=== PATIENT | female | born 1960 | race Caucasian/White ===

== ENCOUNTER 2017-01-23 20:48 | Emergency (ER) | payer SELFPAY ==
[~2017-01-23 20:48] MED LIST: METOPROLOL TART25 M1 PO; NEU300 PO; NOR10T PO; PROZ20 PO; SOMA350 MG PO; XAN1 PO
[2017-01-23 23:45] VITALS: BP 139/86
== END 2017-01-23 23:45 | disposition home or self-care (01) ==
LOC: ED 20:48
DX: G89.29 Other chronic pain (principal); R06.00 Dyspnea, unspecified; J45.909 Unspecified asthma, uncomplicated; Z79.899 Other long term (current) drug therapy

== ENCOUNTER 2017-07-31 19:32 | Emergency (ER) | payer OTHER ==
[2017-07-31 22:16] LABS: BASOPHIL % 0.7 % (0-2); PLATELET COUNT 225 x10^3mcL (130-400); RED CELL DISTRIBUTION WIDTH 13.6 % (11.5-14.5)
[2017-07-31 22:25] LABS: CALCIUM 8.8 mg/dL (8.5-10.1); CHLORIDE SERUM 105 mmol/L (98-107); GFR1 > 60 mL/min; GLUCOSE SERUM 126 mg/dL (74-106); POTASSIUM SERUM 3.7 mmol/L (3.5-5.1); SODIUM SERUM 142 mmol/L (136-145)
[2017-07-31 22:29] LABS: microscopic required? YES; urine erythrocyte NEGATIVE (NEGATIVE)
[2017-07-31 22:30] LABS: ALBUMIN 4.1 g/dL (3.4-5.0); ALKALINE PHOSPHATASE 88 U/L (46-116); ALT/SGPT 24 U/L (14-59); AST/SGOT 9 U/L (15-37); BILIRUBIN TOTAL 0.35 mg/dL (0.20-1.00); TOTAL PROTEIN, SERUM 7.7 g/dL (6.4-8.2)
[2017-08-01 00:34] VITALS: BP 140/85
== END 2017-08-01 00:34 | disposition home or self-care (01) ==
LOC: ED 19:32
PROVIDERS: Emergency Medicine
DX: F11.23 Opioid dependence with withdrawal (principal); F41.1 Generalized anxiety disorder; M79.1 Myalgia; J45.909 Unspecified asthma, uncomplicated
CPT/HCPCS: 36415

== ENCOUNTER 2017-08-21 19:48 | Emergency (ER) | payer OTHER ==
[2017-08-21 20:42] VITALS: BP 146/91
== END 2017-08-21 20:42 | disposition home or self-care (01) ==
LOC: ED 19:48
DX: Z76.0 Encounter for issue of repeat prescription (principal); G89.29 Other chronic pain; M54.5 Low back pain; J45.909 Unspecified asthma, uncomplicated; M54.2 Cervicalgia; M48.00 Spinal stenosis, site unspecified

== ENCOUNTER 2017-09-14 18:36 | Emergency (ER) | payer OTHER ==
[~2017-09-14] VITALS: Ht 167.6 cm; Wt 103.9 kg
[2017-09-14 18:58] VITALS: Ht 167.6 cm; Wt 103.9 kg
[2017-09-14 19:53] VITALS: BP 134/97
== END 2017-09-14 19:53 | disposition home or self-care (01) ==
LOC: ED 18:36
DX: Z76.0 Encounter for issue of repeat prescription (principal); F41.9 Anxiety disorder, unspecified; G89.4 Chronic pain syndrome; F32.9 Major depressive disorder, single episode, unspecified; K02.9 Dental caries, unspecified; E66.9 Obesity, unspecified; F11.20 Opioid dependence, uncomplicated

== ENCOUNTER 2017-11-07 16:53 | Emergency (ER) | payer OTHER ==
[~2017-11-07] VITALS: Ht 167.6 cm; Wt 102.0 kg
[2017-11-07 16:56] VITALS: BP 140/95; Ht 167.6 cm; Wt 102.0 kg
== END 2017-11-07 17:28 | disposition home or self-care (01) ==
LOC: ED 16:53
DX: G89.29 Other chronic pain (principal); M54.5 Low back pain; J45.909 Unspecified asthma, uncomplicated

== ENCOUNTER 2017-11-08 20:40 | Emergency (ER) | payer OTHER ==
[~2017-11-08] VITALS: Ht 167.6 cm; Wt 103.0 kg
[2017-11-08 20:49] VITALS: Ht 167.6 cm; Wt 103.0 kg
[2017-11-08 22:31] LABS: BASOPHIL % 0.9 % (0-2); PLATELET COUNT 218 x10^3mcL (130-400); RED CELL DISTRIBUTION WIDTH 13.9 % (11.5-14.5)
[2017-11-08 22:38] LABS: CALCIUM 8.2 mg/dL (8.5-10.1); CARBON DIOXIDE 27.7 mmol/L (21-32); CREATININE SERUM 1.1 mg/dL (0.6-1.0); POTASSIUM SERUM 3.4 mmol/L (3.5-5.1)
[2017-11-08 22:41] LABS: ALBUMIN 3.4 g/dL (3.4-5.0); BILIRUBIN TOTAL 0.2 mg/dL (0.20-1.00); TOTAL PROTEIN, SERUM 6.6 g/dL (6.4-8.2)
[2017-11-09 02:30] VITALS: BP 110/69
== END 2017-11-09 03:21 | disposition home or self-care (01) ==
LOC: ED 20:40
PROVIDERS: Emergency Medicine
DX: R07.9 Chest pain, unspecified (principal); R06.02 Shortness of breath; J45.909 Unspecified asthma, uncomplicated; G89.29 Other chronic pain
CPT/HCPCS: 36415; 83880; Q0092

== ENCOUNTER 2017-12-03 18:04 | Inpatient (IN) | payer OTHER ==
[~2017-12-03] VITALS: Ht 167.6 cm; Wt 98.9 kg
[2017-12-03 18:05] VITALS: Ht 167.6 cm; Wt 98.9 kg
[2017-12-03 19:02] LABS: BASOPHIL % 0.5 % (0-2); PLATELET COUNT 302 x10^3mcL (130-400)
[2017-12-03 19:09] LABS: CALCIUM 8.8 mg/dL (8.5-10.1); CARBON DIOXIDE 25.2 mmol/L (21-32); CREATININE SERUM 1.7 mg/dL (0.6-1.0); POTASSIUM SERUM 3.9 mmol/L (3.5-5.1)
[2017-12-03 19:21] LABS: ALBUMIN 3.6 g/dL (3.4-5.0); BILIRUBIN TOTAL 0.3 mg/dL (0.20-1.00); T4(THYROXINE) 5.8 ug/dL (4.7-13.3); TOTAL PROTEIN, SERUM 6.9 g/dL (6.4-8.2)
[2017-12-03 19:26] LABS: CK-MB 0.9 ng/mL (0-3.6)
[2017-12-03 19:29] LABS: RED CELL DISTRIBUTION WIDTH 14.6 % (11.5-14.5)
[2017-12-03 19:31] LABS: AMPHETAMINE QUAL UR NONE DETECTED (NEG <=1000)
[2017-12-03] MEDS ORDERED: ROBAXIN-750750 MG PO (19:40)
[2017-12-03] MEDS ORDERED: PERCOCET1 TA5 PO (19:40)
[2017-12-03] MEDS ORDERED: MORPHINE SULFAT30 M2 PO (19:41)
[2017-12-03] MEDS ORDERED: LIDODERM51 TOP (20:05)
[2017-12-03 20:26] VITALS: BP 109/65
[2017-12-03 21:27] LABS: MAGNESIUM 2.2 mg/dL (1.8-2.4); PHOSPHOROUS 4.8 mg/dL (2.5-4.9)
[2017-12-03 21:29] LABS: CHOLESTEROL/HDL RATIO 3.5
[2017-12-04 04:42] LABS: BASOPHIL % 0.5 % (0-2); PLATELET COUNT 249 x10^3mcL (130-400)
[2017-12-04 04:43] LABS: RED CELL DISTRIBUTION WIDTH 14.9 % (11.5-14.5)
[2017-12-04 04:50] VITALS: BP 95/59
[2017-12-04 04:57] LABS: CALCIUM 8.7 mg/dL (8.5-10.1); CARBON DIOXIDE 28.2 mmol/L (21-32); CREATININE SERUM 1.4 mg/dL (0.6-1.0); MAGNESIUM 2.3 mg/dL (1.8-2.4); PHOSPHOROUS 4.6 mg/dL (2.5-4.9); POTASSIUM SERUM 3.8 mmol/L (3.5-5.1)
[2017-12-04 09:00] VITALS: BP 130/77
[2017-12-04 09:16] VITALS: BP 130/77
[2017-12-04 12:13] VITALS: BP 110/65
[2017-12-04 16:58] VITALS: BP 102/62
[2017-12-04 21:01] VITALS: BP 102/65
[2017-12-05] MEDS ORDERED: LIPI10 PO (05:49)
[2017-12-05 05:51] VITALS: BP 136/72
[2017-12-05] MEDS ORDERED: METOPROLOL TART25 M1 PO (05:59)
[2017-12-05] MEDS ORDERED: ECO81 PO (06:01)
[2017-12-05 06:22] LABS: BASOPHIL % 0.7 % (0-2); PLATELET COUNT 214 x10^3mcL (130-400); RED CELL DISTRIBUTION WIDTH 14.2 % (11.5-14.5)
[2017-12-05 06:32] LABS: CALCIUM 8.6 mg/dL (8.5-10.1); CARBON DIOXIDE 28.6 mmol/L (21-32); CHLORIDE SERUM 108 mmol/L (98-107); CREATININE SERUM 0.9 mg/dL (0.6-1.0); GFR1 > 60 mL/min; GLUCOSE SERUM 94 mg/dL (74-106); MAGNESIUM 2.1 mg/dL (1.8-2.4); PHOSPHOROUS 3.9 mg/dL (2.5-4.9); POTASSIUM SERUM 4.3 mmol/L (3.5-5.1); SODIUM SERUM 141 mmol/L (136-145)
[2017-12-05 09:07] VITALS: BP 127/87
[2017-12-05] MEDS ORDERED: RIZATRIPTAN BENZ5 MG PO ×2 (09:11→09:47)
[2017-12-05] MEDS ORDERED: FLE10 PO (09:12)
[2017-12-05 11:57] VITALS: BP 127/87
[2017-12-05 13:41] VITALS: BP 133/64
== END 2017-12-05 17:45 | disposition home or self-care (01) | DRG 201 ==
LOC: ED 18:04 → DU 19:31
PROVIDERS: Emergency Medicine; Family Medicine
DX: I47.1 Supraventricular tachycardia (principal); N17.0 Acute kidney failure with tubular necrosis; G89.29 Other chronic pain; J44.1 Chronic obstructive pulmonary disease with (acute) exacerbation; M54.89 Other dorsalgia; E02 Subclinical iodine-deficiency hypothyroidism; M79.7 Fibromyalgia; F17.210 Nicotine dependence, cigarettes, uncomplicated; E66.9 Obesity, unspecified; F41.9 Anxiety disorder, unspecified; F32.9 Major depressive disorder, single episode, unspecified; Z82.49 Family history of ischemic heart disease and other diseases of the circulatory system; Z83.3 Family history of diabetes mellitus; Z68.36 Body mass index [BMI] 36.0-36.9, adult
CPT/HCPCS: 36600; 82962; 83880; J0153; J1644; J1885; J2930; J7030; Q0092

== ENCOUNTER 2018-03-28 20:06 | Emergency (ER) | payer OTHER ==
[~2018-03-28 20:06] MED LIST changes: +ECO81 PO; +FLE10 PO; +LIDODERM51 TOP; +LIPI10 PO; +MORPHINE SULFAT30 M2 PO; +PERCOCET1 TA5 PO; +RIZATRIPTAN BENZ5 MG PO; +ROBAXIN-750750 MG PO
[2018-03-28 23:08] VITALS: BP 122/69
== END 2018-03-28 23:08 | disposition home or self-care (01) ==
LOC: ED 20:06
DX: J32.9 Chronic sinusitis, unspecified (principal); G43.909 Migraine, unspecified, not intractable, without status migrainosus; F41.9 Anxiety disorder, unspecified; J45.909 Unspecified asthma, uncomplicated; G89.29 Other chronic pain; I47.1 Supraventricular tachycardia

== ENCOUNTER 2018-09-16 17:26 | Emergency (ER) | payer OTHER ==
[~2018-09-16] VITALS: Ht 167.6 cm; Wt 105.2 kg
[2018-09-16 17:35] VITALS: Ht 167.6 cm; Wt 105.2 kg
[2018-09-16 19:27] VITALS: BP 114/89
== END 2018-09-16 19:27 | disposition home or self-care (01) ==
LOC: ED 17:26
DX: G89.29 Other chronic pain (principal); M54.9 Dorsalgia, unspecified; J45.909 Unspecified asthma, uncomplicated; I10 Essential (primary) hypertension; G43.909 Migraine, unspecified, not intractable, without status migrainosus; F41.9 Anxiety disorder, unspecified; Z98.890 Other specified postprocedural states

== ENCOUNTER 2019-02-05 23:39 | Emergency (ER) | payer OTHER ==
[~2019-02-05] VITALS: Ht 167.6 cm; Wt 107.5 kg
[2019-02-05 23:42] VITALS: Ht 167.6 cm; Wt 107.5 kg
[2019-02-06 02:58] VITALS: BP 129/83
== END 2019-02-06 02:58 | disposition home or self-care (01) ==
LOC: ED 23:39
DX: R00.2 Palpitations (principal); I10 Essential (primary) hypertension; G89.29 Other chronic pain; M54.9 Dorsalgia, unspecified; F41.9 Anxiety disorder, unspecified; G43.909 Migraine, unspecified, not intractable, without status migrainosus
CPT/HCPCS: J2270

== ENCOUNTER 2019-02-22 21:04 | Emergency (ER) | payer OTHER ==
[~2019-02-22] VITALS: Ht 167.6 cm; Wt 107.5 kg
[2019-02-22 21:12] VITALS: Ht 167.6 cm; Wt 107.5 kg
[2019-02-22 22:36] VITALS: BP 133/83
== END 2019-02-22 22:36 | disposition home or self-care (01) ==
LOC: ED 21:04
DX: Z76.0 Encounter for issue of repeat prescription (principal); G89.29 Other chronic pain; M54.9 Dorsalgia, unspecified; J45.909 Unspecified asthma, uncomplicated; I10 Essential (primary) hypertension; F41.9 Anxiety disorder, unspecified; G43.909 Migraine, unspecified, not intractable, without status migrainosus
CPT/HCPCS: J2270

== ENCOUNTER 2019-03-06 02:25 | Emergency (ER) | payer OTHER ==
[~2019-03-06] VITALS: Ht 167.6 cm; Wt 108.0 kg
[2019-03-06 04:17] VITALS: BP 132/80
== END 2019-03-06 04:17 | disposition home or self-care (01) ==
LOC: ED 02:25
DX: S39.012A Strain of muscle, fascia and tendon of lower back, initial encounter (principal); M54.42 Lumbago with sciatica, left side; F32.9 Major depressive disorder, single episode, unspecified; I10 Essential (primary) hypertension; M48.061 Spinal stenosis, lumbar region without neurogenic claudication; X58.XXXA Exposure to other specified factors, initial encounter; Y93.89 Activity, other specified; Y92.89 Other specified places as the place of occurrence of the external cause; Y99.8 Other external cause status
CPT/HCPCS: J1885; J2270

== ENCOUNTER 2019-04-03 22:35 | Emergency (ER) | payer OTHER ==
[~2019-04-03] VITALS: Ht 167.6 cm; Wt 108.4 kg
[2019-04-03 22:52] VITALS: Ht 167.6 cm; Wt 108.4 kg
[2019-04-04 01:30] VITALS: BP 117/70
== END 2019-04-04 01:30 | disposition home or self-care (01) ==
LOC: ED 22:35
DX: J45.901 Unspecified asthma with (acute) exacerbation (principal); M54.40 Lumbago with sciatica, unspecified side; G89.29 Other chronic pain; J45.909 Unspecified asthma, uncomplicated; I10 Essential (primary) hypertension; I47.1 Supraventricular tachycardia; G43.909 Migraine, unspecified, not intractable, without status migrainosus; F41.9 Anxiety disorder, unspecified; Z76.0 Encounter for issue of repeat prescription
CPT/HCPCS: J1885; J7613

== ENCOUNTER 2019-05-15 20:34 | Emergency (ER) | payer OTHER ==
[~2019-05-15] VITALS: Ht 167.6 cm; Wt 108.9 kg
[2019-05-15 20:53] VITALS: Ht 167.6 cm; Wt 108.9 kg
[2019-05-15 23:14] LABS: BASOPHIL % 0.6 % (0-2); PLATELET COUNT 221 x10^3mcL (130-400); RED CELL DISTRIBUTION WIDTH 13.5 % (11.5-14.5)
[2019-05-15 23:16] LABS: CALCIUM 8.4 mg/dL (8.5-10.1); CARBON DIOXIDE 26.3 mmol/L (21-32); CHLORIDE SERUM 104 mmol/L (98-107); GFR1 > 60 mL/min; GLUCOSE SERUM 91 mg/dL (74-106); POTASSIUM SERUM 3.4 mmol/L (3.5-5.1); SODIUM SERUM 142 mmol/L (136-145)
[2019-05-15 23:21] LABS: ALBUMIN 3.8 g/dL (3.4-5.0); ALKALINE PHOSPHATASE 90 U/L (46-116); ALT/SGPT 30 U/L (14-59); AST/SGOT 11 U/L (15-37); BILIRUBIN TOTAL 0.3 mg/dL (0.20-1.00); TOTAL PROTEIN, SERUM 7.1 g/dL (6.4-8.2)
[2019-05-16 00:19] VITALS: BP 152/96
== END 2019-05-16 00:51 | disposition home or self-care (01) ==
LOC: ED 20:34
PROVIDERS: Emergency Medicine
DX: M54.30 Sciatica, unspecified side (principal); E87.6 Hypokalemia; T14.8XXA Other injury of unspecified body region, initial encounter; I10 Essential (primary) hypertension; J45.909 Unspecified asthma, uncomplicated; G89.29 Other chronic pain; M54.9 Dorsalgia, unspecified; F41.9 Anxiety disorder, unspecified; G43.909 Migraine, unspecified, not intractable, without status migrainosus; R74.8 Abnormal levels of other serum enzymes; X58.XXXA Exposure to other specified factors, initial encounter; Y93.89 Activity, other specified; Y92.89 Other specified places as the place of occurrence of the external cause; Y99.8 Other external cause status
CPT/HCPCS: 36415; J1885

== ENCOUNTER 2019-06-15 22:06 | Emergency (ER) | payer OTHER ==
[~2019-06-15] VITALS: Ht 167.6 cm; Wt 108.4 kg
[2019-06-15 22:13] VITALS: Ht 167.6 cm; Wt 108.4 kg
[2019-06-15 23:36] VITALS: BP 141/83
== END 2019-06-15 23:36 | disposition home or self-care (01) ==
LOC: ED 22:06
DX: M54.41 Lumbago with sciatica, right side (principal); J45.909 Unspecified asthma, uncomplicated; I10 Essential (primary) hypertension; G43.909 Migraine, unspecified, not intractable, without status migrainosus; F41.9 Anxiety disorder, unspecified
CPT/HCPCS: J1885

== ENCOUNTER 2019-08-26 20:03 | Emergency (ER) | payer OTHER ==
[~2019-08-26] VITALS: Ht 167.6 cm; Wt 107.5 kg
[2019-08-26 20:10] VITALS: Ht 167.6 cm; Wt 107.5 kg
[2019-08-26 21:13] VITALS: BP 121/79
== END 2019-08-26 21:20 | disposition home or self-care (01) ==
LOC: ED 20:03
DX: F41.9 Anxiety disorder, unspecified (principal); G89.4 Chronic pain syndrome; J45.909 Unspecified asthma, uncomplicated; M54.9 Dorsalgia, unspecified; G43.909 Migraine, unspecified, not intractable, without status migrainosus; I10 Essential (primary) hypertension; Z76.0 Encounter for issue of repeat prescription